=== PATIENT | female | born 1965 | race Caucasian/White ===

== ENCOUNTER 2022-02-10 12:26 | Emergency (ER) | payer MEDICARE, MEDICAID ==
[~2022-02-10] VITALS: Ht 149.9 cm; Wt 81.8 kg
[~2022-02-10 12:26] MED LIST: ALBU8HFA PO; CALC1CAP13 PO; CARI-433 PO; CETI10CA PO; DIAZ10TA; FLUT16SP10 NAS; INTE30PE3 IM; LEVO50TA8 PO; LIDOCAINE OINT 5% TOP; MECL-159 PO; NAPR-1170 PO; NITR0.4T48 SL; OMEP20CA16 PO; ONDA-103 PO; OXYC-145 PO; TUMERIC PO; VIT1TABL91 PO
== END 2022-02-10 13:53 | disposition home or self-care (01) ==
LOC: ER 12:27
DX: M79.671 Pain in right foot (principal); Z88.5 Allergy status to narcotic agent; Z79.899 Other long term (current) drug therapy; Z88.6 Allergy status to analgesic agent; Z90.49 Acquired absence of other specified parts of digestive tract; X50.0XXA Overexertion from strenuous movement or load, initial encounter; Y93.89 Activity, other specified; Y92.89 Other specified places as the place of occurrence of the external cause; Y99.8 Other external cause status
CPT/HCPCS: 73630; 99283; A6449

== ENCOUNTER 2023-08-14 12:56 | Emergency (ER) | payer MEDICARE, MEDICAID ==
[~2023-08-14] VITALS: Ht 149.9 cm; Wt 90.2 kg
[~2023-08-14 12:56] MED LIST changes: +ALBU18HF2 PO; -CALC1CAP13 PO; -CARI-433 PO; -DIAZ10TA; +DIAZ10TA4 PO; -INTE30PE3 IM; -LIDOCAINE OINT 5% TOP; -MECL-159 PO; +MECL-302 PO; +MELO-100 PO; -NAPR-1170 PO; -NITR0.4T48 SL; -OXYC-145 PO; +PER5325T PO; +SUMA25TA35 PO; +TIZA-205; -TUMERIC PO
[2023-08-14 13:18] VITALS: TEMP 97
[2023-08-14 15:26] VITALS: BP 165/85; PULSE 58; RESP 16; O2SAT 97
== END 2023-08-14 15:24 | disposition home or self-care (01) ==
LOC: ER 12:56
DX: G89.18 Other acute postprocedural pain (principal); M79.671 Pain in right foot; Z88.8 Allergy status to other drugs, medicaments and biological substances; Z88.5 Allergy status to narcotic agent; Z79.899 Other long term (current) drug therapy; Z90.710 Acquired absence of both cervix and uterus; Z90.49 Acquired absence of other specified parts of digestive tract
CPT/HCPCS: 99281; A6258; A6446; A6449

== ENCOUNTER 2024-05-18 11:01 | Outpatient (CLI) | payer MEDICARE, MEDICAID | END 2024-05-18 23:59 | disposition home or self-care (01) | LOC: MRI02 11:01 | PROVIDERS: ATTEND Podiatrist Foot & Ankle Surgery | DX: S93.629A Sprain of tarsometatarsal ligament of unspecified foot, initial encounter (principal); S92.819A Other fracture of unspecified foot, initial encounter for closed fracture; M79.671 Pain in right foot; G57.80 Other specified mononeuropathies of unspecified lower limb; M19.071 Primary osteoarthritis, right ankle and foot; X58.XXXA Exposure to other specified factors, initial encounter; Y93.89 Activity, other specified; Y92.89 Other specified places as the place of occurrence of the external cause; Y99.8 Other external cause status | CPT/HCPCS: 73718; 73721 ==

== ENCOUNTER 2024-09-20 07:24 | Outpatient (CLI) | payer MEDICARE, MEDICAID | END 2024-09-20 23:59 | disposition home or self-care (01) | LOC: MRI02 07:24 | PROVIDERS: ATTEND Podiatrist Foot & Ankle Surgery | DX: S93.621A Sprain of tarsometatarsal ligament of right foot, initial encounter (principal); M65.871 Other synovitis and tenosynovitis, right ankle and foot; X58.XXXA Exposure to other specified factors, initial encounter; Y93.89 Activity, other specified; Y92.89 Other specified places as the place of occurrence of the external cause; Y99.8 Other external cause status | CPT/HCPCS: 73721 ==

== ENCOUNTER 2024-11-22 08:13 | Day surgery (SDC) | payer MEDICARE, MEDICAID ==
[2024-11-15 12:17] LABS: BILIRUBIN,URINE NEGATIVE (Neg); CLARITY,URINE CLEAR (Clear); COLOR,URINE YELLOW (Yellow); GLUCOSE, URINE NEGATIVE (Neg); KETONES,URINE NEGATIVE (Neg); LEUKOCYTE ESTERASE ,URINE NEGATIVE (Neg); NITRITES, URINE NEGATIVE (Neg); OCCULT BLOOD,URINE NEGATIVE (Neg); PROTEIN,URINE NEGATIVE (Neg); UROBILINOGEN,URINE 0.2 E.U/dL (0.2-1.0)
[2024-11-15 12:19] LABS: UA COLLECTION TYPE CLN CATCH MIDSTREAM
[2024-11-15 12:24] LABS: BASOPHILS % (AUTO) 0.4 % (0-1); EOSINOPHILS # (AUTO) 0.5 X10'3 (0-0.9); EOSINOPHILS % (AUTO) 4.3 % (0-6); LYMPHOCYTES # (AUTO) 2.9 X10'3 (1.1-4.8); LYMPHOCYTES % (AUTO) 26.6 % (21-51); MEAN CORPUSCULAR HEMOGLOBIN 29.1 PG (27.0-31.0); MEAN CORPUSCULAR HGB CONC 33.7 g/dL (33.0-36.5); MEAN CORPUSCULAR VOLUME 86.4 FL (78-98); MEAN PLATELET VOLUME 7.8 FL (7.4-10.4); MONOCYTES # (AUTO) 0.6 X10'3 (0-0.9); MONOCYTES % (AUTO) 5.3 % (2-12); NEUTROPHILS # (AUTO) 6.8 X10'3 (1.8-7.7); NEUTROPHILS % (AUTO) 63.4 % (42-75); PRE OP HEMATOCRIT 41.8 % (35.0-45.0); PRE OP HEMOGLOBIN 14.1 g/dL (12.0-16.0); PRE OP PLATELET COUNT 316 X10'3 (140-440); PRE OP WHITE BLOOD COUNT 10.7 10'3 (4.8-10.8); RED BLOOD COUNT 4.84 X10'6 (4.20-5.60); RED CELL DISTRIBUTION WIDTH 13.8 % (11.5-14.5)
[2024-11-15 12:41] LABS: ALBUMIN/GLOBULIN RATIO 1.1 (1.1-1.5); ALKALINE PHOSPHATASE 126 IU/L (46-116); BLOOD UREA NITROGEN 10 MG/DL (7-18); BUN/CREATININE RATIO 13.2 (10.0-20.0); CALCIUM 9.2 MG/DL (8.5-10.1); CHLORIDE 109 MMOL/L (99-107); CREATININE 0.76 MG/DL (0.40-0.90); PRE OP ALT 37 U/L (30-65); PRE OP ANION GAP 7 (8-16); PRE OP AST 19 U/L (10-37); PRE OP BILIRUB, TOTAL 0.4 MG/DL (0.0-1.0); PRE OP GLUCOSE 99 MG/DL (70-104); PRE OP POTASSIUM 3.9 MMOL/L (3.4-5.1); PRE OP SODIUM 143 MMOL/L (135-145); TOTAL CARBON DIOXIDE 27.2 MMOL/L (24-32); TOTAL PROTEIN 7.6 G/DL (6.4-8.2); eGFR 78 ML/MIN
[~2024-11-22] VITALS: Ht 151.1 cm; Wt 86.2 kg
[2024-11-22] VITALS (11 sets, daily range): BP systolic 104–139; BP diastolic 59–79; PULSE 51–74; RESP 11–16; TEMP 97.8; O2SAT 94–100
[2024-11-22] MEDS: ceFAZolin 2gm in dextrose, iso 50 ML IV ONE (05:30)
[~2024-11-22 08:13] MED LIST changes: -ALBU18HF2 PO; +ATOR10TA70 PO; +MAGNESIUM; -MECL-302 PO; +MULT-1085 PO; -ONDA-103 PO; +SEMA1PEN3 SQ; -TIZA-205; +TIZA-205 PO; +VIT B12; +VIT D3; -VIT1TABL91 PO; +ZINC; +[UNRECOGNIZED DRUG - OTHER]
[2024-11-22] MEDS: famotidine 20mg tablet PO ONE (09:12)
[2024-11-22] MEDS: ringers solution, lacted 1,000 ML IV SCH (09:13)
[2024-11-22] MEDS ORDERED: bacitracin 15gm ointment TP ONE (09:29)
[2024-11-22] MEDS ORDERED: BUPIVAcaine 2.5mg/ml inj 50ml vial (contains preservative) ONE (09:29)
[2024-11-22] MEDS ORDERED: cloNIDine hcl/PF 100mcg/ml inj ONE (11:27)
[2024-11-22] MEDS ORDERED: propofol inj 20 ML IV ONE (11:29)
[2024-11-22] MEDS ORDERED: midazolam 1 mg/ML 2ml injection ONE (11:29)
[2024-11-22] MEDS ORDERED: fentaNYL/PF 50MCG/1 ML 2ML syringe ONE (11:29)
[2024-11-22] MEDS ORDERED: sevoflurane 250ml liquid IH ONE (11:31)
[2024-11-22] MEDS ORDERED: ROPIVAcaine 0.5% (5mg/ml) 30ml vial ONE ×2 (12:24)
[2024-11-22] MEDS ORDERED: dexamethasone sod phosphate 4mg/ml inj. ONE (12:24)
[2024-11-22] MEDS ORDERED: ondansetron/PF 4mg/2ml inj IV PRN (12:55)
[2024-11-22] MEDS ORDERED: fentaNYL/PF 50MCG/1 ML 2ML syringe IV PRN (12:55)
[2024-11-22] MEDS ORDERED: ringers solution, lacted 1,000 ML IV SCH (12:55)
[2024-11-22] MEDS: ketorolac trometh 30MG/ML vial 30 MG/ML VIAL IV ONE (13:02)
[2024-11-22] MEDS: acetaminophen 1,000mg/100ml IV 100 ML IV PRN (13:02)
[2024-11-22] MEDS: fentaNYL/PF 50MCG/1 ML 2ML syringe IV PRN (13:19)
--- NOTE | 2024-11-29 20:38 | RADIOLOGY REPORT ---
CLINICAL INFORMATION: 59 years old, Female TECHNIQUE: 3 views of the left foot foot were obtained. COMPARISON: None FINDINGS: Intraoperative radiographs demonstrate ORIF of the left 1st and 2nd metatarsal tarsal with orthopedic screws in place.. Fluoroscopy time 3.7 seconds IMPRESSION: 1. Details of the finding in the operative notes
== END 2024-11-22 14:27 | disposition home or self-care (01) ==
LOC: PAS 08:13
PROVIDERS: ATTEND Podiatrist Foot & Ankle Surgery
DX: M25.871 Other specified joint disorders, right ankle and foot (principal); M24.071 Loose body in right ankle; G89.18 Other acute postprocedural pain; E11.9 Type 2 diabetes mellitus without complications; E78.5 Hyperlipidemia, unspecified; M19.011 Primary osteoarthritis, right shoulder; M19.012 Primary osteoarthritis, left shoulder; G35 Multiple sclerosis; G40.909 Epilepsy, unspecified, not intractable, without status epilepticus; K21.9 Gastro-esophageal reflux disease without esophagitis; Z88.6 Allergy status to analgesic agent; Z88.8 Allergy status to other drugs, medicaments and biological substances; Z79.899 Other long term (current) drug therapy; Z98.890 Other specified postprocedural states; M17.11 Unilateral primary osteoarthritis, right knee
CPT/HCPCS: 27620; 28315; 36415; 64445; 64447; 73620; 80053; 81003; 82948; 85025; A4215; A4618; A6223; A6402; A6449; A7000; J0131; J0690; J0735; J1100; J1885; J2250; J2405; J2704; J2795; J3010; J7030; J7120; Z7506; Z7512; Z7610; 76000; A4615; J3490

== ENCOUNTER 2024-11-29 14:07 | Emergency (ER) | payer MEDICARE, MEDICAID ==
[~2024-11-29] VITALS: Ht 149.9 cm; Wt 84.9 kg
[2024-11-29 14:22] VITALS: BP 187/70; PULSE 79; O2SAT 97
--- NOTE | 2024-11-29 18:28 | Physician Documentation ---
History of Present Illness ~ Chief Complaint: Leg Pain Stated Complaint: POST OP COMPLICATIONS Time Seen by MD: 18:27 Primary Medical Doctor: Fabiola JARA HPI Patient presents to the emergency room for evaluation of right calf pain after having a foot and ankle surgery on November 23. She spoke with the clinic of her surgeon who instructed her to come into the emergency room to rule out DVT. No fevers. Pain controlled. Moving foot and ankle independently without limitations. Tetanus witin 5 years: No Medication Reconciliation Allergies: Coded Allergies: chlorzoxazone (Verified Allergy, Severe, SWELLING, 08/11/23) duloxetine (Verified Allergy, Severe, RASH/PEELING, 08/11/23) metaxalone (Verified Allergy, Severe, RASH, 08/11/23) venlafaxine (Verified Allergy, Severe, RASH AND PEELING, 08/11/23) hydromorphone (Verified Allergy, Intermediate, hallucination, nausea, vomiting, 06/27/16) lamotrigine (Verified Allergy, Unknown, SKIN CRAWLING HIVES TINGLING NUMB, 11/21/24) morphine (Verified Allergy, Unknown, VOMIT, 11/21/24) prednisone (Verified Allergy, Unknown, SWELLING, RASH, TIGHTENING, 08/11/23) Scheduled Atorvastatin Calcium (Atorvastatin Calcium), 1 TAB PO DAILY, (Reported) Cetirizine Hcl (Zyrtec), 10 MG PO DAILY, (Reported) Fluticasone Propionate (Flonase), 1 SPR ERWIN BID, (Reported) Levothyroxine Sodium (Levothyroxine Sodium), 1 TAB PO DAILY, (Reported) Meloxicam* (Meloxicam*), 1 TAB PO DAILY, (Reported) Multivitamin (Multi Vitamin Daily), Unknown Dose PO DAILY, (Reported) Omeprazole (Omeprazole), 1 CAP PO DAILY, (Reported) Semaglutide (Ozempic), 1 MG SQ Q7D, (Reported) Scheduled PRN Oxycodone Hcl/Acetaminophen 5/325 MG* (Percocet 5/325 MG*), 1 TAB PO Q6H PRN for moderate pain, (Reported) Sumatriptan Succinate (Imitrex), 2 TAB PO DAILY PRN for migraine headaches, (Reported) Tizanidine Hcl (Zanaflex), 0.5 TAB PO DAILY PRN for muscle spasms, (Reported) albuterol inhaler (Pro-Air Inhaler), 1-2 PUFFS PO Q4H PRN for SOB or wheezing, (Reported) Miscellaneous Medications Diazepam (Diazepam), 1 TAB PO, (Reported) [Magnesium], (Reported) [Probitotic 10], Unknown Dose, (Reported) [Vit B12], (Reported) [Vit D3], (Reported) [Zinc], (Reported) Past Medical History Past Medical History: Multiple Sclerosis, Rheumatoid Arthritis Past Surgical History: cholecystectomy, hysterectomy, orthopedic surgeries Other Past Family History: Adopted Alcohol Use: Occasionally Drug Use: none Lives In: Home Occupation: employed Review of Systems ROS All review of systems negative except as per HPI Physical Exam Vital Signs: Temperature: 98.0, Heart Rate: 79, Respiratory Rate: 16, BP: 187/70, Pulse Oximetry: 97, Weight: 84.860 Oxygen Flow Rate: 0 General Appearance General: Patient is awake, alert, oriented x4 in no acute distress and well appearing.~ Head: Normocephalic and atraumatic. Eyes: Conjunctival normal. EOMI. PERRL. ENT: Mucous membranes moist. Neck: Supple, trachea is midline. Chest: Clear to auscultation bilaterally without rales, rhonchi, or wheezes. There is no accessory muscle use or retractions. Cardiac: RRR without murmurs, gallops, or rubs. Extremities: Normal strength. Normal range of motion. Noted tenderness to right calf without erythema. Surgical wounds appear well healing without infection Progress Results/Orders Results/Orders Vital Signs 11/29/24 11/29/24 14:22 18:46 Temp 98.0 Pulse 79 Resp 16 14 B/P (MAP) 187/70 Pulse Ox 97 O2 Flow Rate 0 Medical Decision Making Findings Patient presents to the emergency room for evaluation of leg pain. Differentials include but are not limited to DVT, soft tissue injury, hematoma, post surgical pain therefore ultrasound ordered which was reassuring. No signs of infection. He had not feel emergent labs are necessary. Knee Diff Dx:Considerations: Include: DJD Departure Disposition: HOME / SELF CARE / HOMELESS Impression: Primary Impression: Leg pain Condition: Stable Discharge Instructions: Muscle Strain, [id number] Referrals: NO PRIMARY CARE PROVIDER (PCP) Education Educated: Patient Educated regarding: diagnosis, need for follow up Signature Scribe Signature: No scribe Attestation: The note accurately reflects work and decisions made by me.Macario Harding MD 11/29/24 20:16 MACARIO HARDING MD November 29, 2024 18:28
[2024-11-29 18:46] VITALS: RESP 14
--- NOTE | 2024-11-29 20:36 | VASCULAR REPORT ---
RIGHT LOWER EXTREMITY VENOUS DOPPLER ULTRASOUND CLINICAL HISTORY: Calf pain. Recent foot and ankle surgery. TECHNIQUE: Grayscale ultrasound with compression, color Doppler flow imaging with pulsed duplex sonog christopher of the right lower extremity deep venous system from the common femoral veins through the popli teal veins is performed. COMPARISON: None FINDINGS: Right common femoral vein: Negative. Right greater saphenous vein: Negative. Right deep femoral vein: Negative. Right femoral vein: Negative. Right popliteal vein: Negative. Other: Visualized right posterior tibial and peroneal veins demonstrate color flow. Contralateral lef t common femoral vein appears patent. IMPRESSION: No sonographic evidence of deep venous thrombosis in the right lower extremity at this time.
[2024-11-29 20:37] VITALS: TEMP 98
== END 2024-11-29 20:40 | disposition home or self-care (01) ==
LOC: ER 14:08
DX: M79.661 Pain in right lower leg (principal); G35 Multiple sclerosis; M06.9 Rheumatoid arthritis, unspecified; Z88.5 Allergy status to narcotic agent; Z88.8 Allergy status to other drugs, medicaments and biological substances; Z90.49 Acquired absence of other specified parts of digestive tract; Z90.710 Acquired absence of both cervix and uterus
CPT/HCPCS: 93971; 99284; A6449; A6222

== ENCOUNTER 2024-12-27 09:16 | Outpatient (CLI) | payer MEDICARE, MEDICAID ==
--- NOTE | 2024-12-27 11:00 | RADIOLOGY REPORT ---
CLINICAL HISTORY: Pain in the right ankle and right lower leg. History of prior right foot and ankle surgeries. Evaluate Achilles tendon. TECHNIQUE: Multisequence multiplanar MRI images of the right ankle were obtained without contrast. COMPARISON: MR MRI LOWER EXTREMITY RIGHT on DOS: 09/20/24, MR MRI LOWER EXTREMITY RIGHT on DOS: 05/18/24 , MR MRI LOWER EXTREMITY RIGHT on DOS: 05/18/24 FINDINGS: BONES/JOINTS: No acute fracture or focal marrow contusion. No osteochondral lesion. No significant j oint effusion. Similar-appearing postsurgical changes of the medial malleolus from prior lateral liga ment reconstruction. Similar-appearing postsurgical changes of the 1st and 2nd MTP joints with associ ated artifact which limits evaluation of adjacent structures. TENDONS: Tibialis posterior, flexor digitorum longus, and flexor hallucis longus tendons are intact. [id number] peroneal tenosynovitis near the level of the lateral malleolus, decreased compared t o the prior MRI. Previously seen loose bodies within the peroneal tendon sheath are no longer visual ized. Tibialis anterior, extensor hallucis longus, and extensor digitorum longus tendons are intact. Mild Achilles tendinosis with mild peritendinitis. LIGAMENTS: Mild edema of the deep fibers of the deltoid ligament complex, unchanged and likely sequel a of chronic sprain. Spring ligament complex is intact. Similar-appearing postsurgical changes from p rior lateral ligament reconstruction. Attenuated, indistinct fibers of the anterior talofibular ligam ent, likely sequela of postsurgical changes and prior chronic sprain/partial tear unchanged. Posterio r talofibular ligament is intact. Syndesmotic ligaments are intact. Thickened calcaneofibular ligamen t, similar to prior exams, likely chronic sprain. PLANTAR FASCIA: Unremarkable. No significant thickening or edema. SINUS TARSI: Unremarkable. No significant edema. MUSCLES: Unremarkable. No significant atrophy. OTHER: No other significant findings. IMPRESSION: 1. Mild Achilles tendinosis with mild peritendinitis. No Achilles tendon tear. 2. Sequelae of postsurgical changes as detailed above. 3. Peroneal tenosynovitis, decreased compared to the prior exam, with interval removal of previously seen loose bodies in the peroneal tendon sheath. 4. Additional findings as described above.
== END 2024-12-27 23:59 | disposition home or self-care (01) ==
LOC: MRI02 09:16
PROVIDERS: ATTEND Podiatrist Foot & Ankle Surgery
DX: S93.621A Sprain of tarsometatarsal ligament of right foot, initial encounter (principal); S92.811A Other fracture of right foot, initial encounter for closed fracture; M79.671 Pain in right foot; M65.871 Other synovitis and tenosynovitis, right ankle and foot; M76.61 Achilles tendinitis, right leg; M25.471 Effusion, right ankle; R60.0 Localized edema; X58.XXXA Exposure to other specified factors, initial encounter; Y93.9 Activity, unspecified; Y92.89 Other specified places as the place of occurrence of the external cause; Y99.8 Other external cause status
CPT/HCPCS: 73721

== ENCOUNTER 2025-03-15 13:01 | Emergency (ER) | payer MEDICARE, MEDICAID ==
[~2025-03-15] VITALS: Ht 149.9 cm; Wt 83.0 kg
[2025-03-15 13:05] VITALS: BP 177/84; PULSE 70; RESP 16; O2SAT 97
[2025-03-15] MEDS: DEXAMETHASONE 6 MG TABLET PO ONE (13:44)
--- NOTE | 2025-03-15 15:16 | Physician Documentation ---
History of Present Illness ~ Chief Complaint: Neck pain Stated Complaint: NECK AND HEAD PAIN Time Seen by MD: 13:16 OK to notify your PCP?: Yes Primary Medical Doctor: Fabiola JARA Source: patient Mode of Arrival: POV Exam Limitations: no limitations HPI 59-YEAR-OLD FEMALE WITH CHIEF COMPLAINT NECK PAIN THAT RADIATES INTO THE BACK OF THE RIGHT SIDE OF HER HEAD THAT STARTED YESTERDAY BUT WORSENED WHEN SHE WOKE UP THIS MORNING. SHE STATES THE PAIN IS WORSE WHEN SHE TRIES TO LOOK TO THE LEFT OR RIGHT. SHE HAS BEEN EVALUATED RIGHT NOW BY A NEUROLOGIST OUT OF THE AREA FOR OCCIPITAL NEURALGIA. SHE DOES HAVE TIZANIDINE WHICH SHE TOOK LAST NIGHT BUT NO OTHER PRE ARRIVAL TREATMENT. NO RECENT FALLS OR TRAUMA TO HEAD OR NECK. PATIENT ALSO REPORTS A DIAGNOSIS OF MS AND STATES SHE HAS BEEN IN REMISSION FOR TWO YEARS AND NOT ON ANY MEDICATIONS. Medication Reconciliation Allergies: Coded Allergies: chlorzoxazone (Verified Allergy, Severe, SWELLING, 08/11/23) duloxetine (Verified Allergy, Severe, RASH/PEELING, 08/11/23) metaxalone (Verified Allergy, Severe, RASH, 08/11/23) venlafaxine (Verified Allergy, Severe, RASH AND PEELING, 08/11/23) hydromorphone (Verified Allergy, Intermediate, hallucination, nausea, vomiting, 06/27/16) lamotrigine (Verified Allergy, Unknown, SKIN CRAWLING HIVES TINGLING NUMB, 11/21/24) morphine (Verified Allergy, Unknown, VOMIT, 11/21/24) prednisone (Verified Allergy, Unknown, SWELLING, RASH, TIGHTENING, 08/11/23) Scheduled Atorvastatin Calcium (Atorvastatin Calcium), 1 TAB PO DAILY, (Reported) Cetirizine Hcl (Zyrtec), 10 MG PO DAILY, (Reported) Fluticasone Propionate (Flonase), 1 SPR ERWIN BID, (Reported) Levothyroxine Sodium (Levothyroxine Sodium), 1 TAB PO DAILY, (Reported) Meloxicam* (Meloxicam*), 1 TAB PO DAILY, (Reported) Multivitamin (Multi Vitamin Daily), Unknown Dose PO DAILY, (Reported) Omeprazole (Omeprazole), 1 CAP PO DAILY, (Reported) Semaglutide (Ozempic), 1 MG SQ Q7D, (Reported) Scheduled PRN Oxycodone Hcl/Acetaminophen 5/325 MG* (Percocet 5/325 MG*), 1 TAB PO Q6H PRN for moderate pain, (Reported) Sumatriptan Succinate (Imitrex), 2 TAB PO DAILY PRN for migraine headaches, (Reported) Tizanidine Hcl (Zanaflex), 0.5 TAB PO DAILY PRN for muscle spasms, (Reported) albuterol inhaler (Pro-Air Inhaler), 1-2 PUFFS PO Q4H PRN for SOB or wheezing, (Reported) Miscellaneous Medications Diazepam (Diazepam), 1 TAB PO, (Reported) [Magnesium], (Reported) [Probitotic 10], Unknown Dose, (Reported) [Vit B12], (Reported) [Vit D3], (Reported) [Zinc], (Reported) Past Medical History Past Medical History: Multiple Sclerosis, Rheumatoid Arthritis Past Surgical History: cholecystectomy, hysterectomy, orthopedic surgeries Other Past Family History: Adopted Alcohol Use: Occasionally Drug Use: none Lives In: Home Occupation: employed Review of Systems All Other Systems at this time: Reviewed and Negative Physical Exam Vital Signs: Temperature: 98.6, Source: Temporal, Heart Rate: 70, Respiratory Rate: 16, BP: 177/84, Pulse Oximetry: 97, Weight: 83.000 Oxygen Flow Rate: 0 Physical Exam GENERAL APPEARANCE: ALERT, WD/WN. NAD. HEENT: NCAT, TENDERNESS OVER OCCIPITAL SCALP. PERRL, EOMI. NECK: SUPPLE, TRACHEA MIDLINE. CARDIOVASCULAR: RRR. NO M/R/G. LUNGS: CTAB. BREATHING UNLABORED SPINE: NO TENDERNESS OVER SPINOUS PROCESSES OF CERVICAL SPINE THERE IS TENDERNESS OVER THE SCM MUSCLE IN THE RIGHT SIDE, TRAPEZIUS AND RHOMBOID MUSCLE. ACTIVE RANGE MOTION OF CERVICAL SPINE IS REDUCED WHEN PATIENT TRIES TO LOOK TO THE RIGHT. EXTREMITIES: NORMAL INSPECTION. NO EDEMA. SKIN: WARM/DRY, NORMAL COLOR NEUROLOGICAL: ALERT AND ORIENTED X4, NORMAL GAIT. PSYCHIATRIC: AFFECT CONGRUENT WITH MOOD. Progress Progress Note WITH PATIENT REPORTED THAT SHE DID FEEL THAT THE DEXAMETHASONE 10 MG AND HELPED HER PAIN PATIENT WAS OBSERVED FOR 2HOURS AFTER GIVING THE DEXAMETHASONE AND NO REACTIONS Results/Orders Reviewed/noted all lab results: Yes Results/Orders Orders - JOANA HUANG General Nursing Order (03/15/25 13:25) Completed Orders - JOANA HUANG Dexamethasone Tablet (Decadron Tablet) (03/15/25 13:35) Dexamethasone 6mg Tablet (Dexamethasone (03/15/25 13:40) Medications Received in ER Medications (Trade) Dose Ordered Sig/Zainab Route PRN Reason Start Time Stop Time Status Last Admin Dose Admin (Decadron tablet) 4 mg ONCE ONCE PO 03/15/25 13:35 03/15/25 13:36 DC 03/15/25 13:44 4 MG (Dexamethasone 6mg tablet) 6 mg ONCE ONCE PO 03/15/25 13:40 03/15/25 13:41 DC 03/15/25 13:44 6 MG Vital Signs 03/15/25 13:05 Temp 98.6 Pulse 70 Resp 16 B/P (MAP) 177/84 Pulse Ox 97 O2 Flow Rate 0 Medical Decision Making Differential Dx:Considerations: Include: Cervical muscle spasm, Discitis, DJD, Meningitis, Thyroiditis, Torticollis, Vertebral artery dissect., Other Departure Time of Disposition: 15:16 Disposition: 01 HOME / SELF CARE / HOMELESS Impression: Primary Impression: Neck pain Additional Impression: Headache Qualified Codes: R51.9 - Headache, unspecified Condition: Stable Discharge Instructions: Acute Torticollis, Adult Additional Instructions: I DO SUSPECT THAT THE PAIN THAT YOU WERE DOING WITH RIGHT NOW IS RELATED TO MUSCLE SPASM AND THE MUSCLE SPASM TRIGGERING A HEADACHE WHICH IS CONSISTENT WITH OCCIPITAL NEURALGIA WHICH YOU REPORTED YOU WERE BEING EVALUATED FOR. IF HOWEVER YOU DEVELOP A FEVER,VOMITING, INCREASING PAIN OR ANY OTHER ATYPICAL SYMPTOMS RETURN TO ER YOU CAN TAKE YOUR TIZANIDINE WHEN YOU GET HOME WE TREATED YOU WITH DEXAMETHASONE 10 MG AND MONITORED YOU FOR AN HOUR AFTERWARDS DUE TO YOU REPORTING AN ALLERGY TO PREDNISONE 15YEARS AGO. WE MUTUALLY AGREED THAT BASED ON YOUR REACTION BEFORE WITH [facility], SWELLING AFTER TAKING FOR SEVERAL DAYS IN A ROW THAT A SINGLE DOSAGE OF DEXAMETHASONE WOULD UNLIKELY CAUSE THOSE SYMPTOMS. Referrals: NO PRIMARY CARE PROVIDER (PCP) Education Educated: Patient Educated regarding: diagnosis, treatment, need for follow up Signature Scribe Signature: X Attestation: JOANA SAMANIEGO Mar 15, 2025 15:16
[2025-03-15 15:32] VITALS: TEMP 98.6
== END 2025-03-15 15:34 | disposition home or self-care (01) ==
LOC: ER 13:01
DX: M54.2 Cervicalgia (principal); R51.9 Headache, unspecified; G35 Multiple sclerosis; M06.9 Rheumatoid arthritis, unspecified; Z88.5 Allergy status to narcotic agent; Z88.8 Allergy status to other drugs, medicaments and biological substances; Z90.49 Acquired absence of other specified parts of digestive tract; Z90.710 Acquired absence of both cervix and uterus
CPT/HCPCS: 99283; L0172; J8540

== ENCOUNTER 2025-04-11 09:07 | Outpatient (CLI) | payer MEDICARE, MEDICAID ==
--- NOTE | 2025-04-11 12:20 | RADIOLOGY REPORT ---
CLINICAL HISTORY: PAIN IN R FOOT, LISFRANC'S SPRAIN TECHNIQUE: Multisequence multiplanar MRI images of the right ankle were obtained without contrast. COMPARISON: MR MRI LOWER EXTREMITY RIGHT on DOS: 12/27/24, DI FOOT,LIMITED (AP/LAT) on DOS: 11/22/24, MR MRI LOWER EXTREMITY RIGHT on DOS: 09/20/24 FINDINGS: BONES/JOINTS: No acute fracture or focal marrow contusion. No osteochondral defect or significant chondromalacia. Similar-appearing postsurgical changes at the lateral malleolus from prior lateral ligament reconstruction. There is also artifact from prior postsurgical changes at the 1st and 2nd tarsometatarsal joints, grossly similar to the prior exam. No significant joint effusion. TENDONS: Tibialis posterior, flexor digitorum longus, and flexor hallucis longus tendons are intact. There is mild peroneal tenosynovitis, minimally changed compared to the prior exam. There is scarring adjacent to the course of the peroneus longus and brevis tendons from the level of the lateral malleolus and coursing caudally to the peroneal tubercle and adjacent subcutaneous tissues, appears to involve a portion of the expected course of the sural nerve. Focal thickening of the sural nerve up to 6 mm in diameter visualized as it courses posterior to the peroneus longus and brevis tendons near the level of the lateral malleolus (series 2 image 9 correlating with series 6, image 5), with thin, indistinct sural nerve fibers more distally, may be due to neuropathy. This finding appears unchanged compared to prior MRI. Tibialis anterior, extensor hallucis longus, and extensor digitorum longus tendons are intact. Mild Achilles tendinosis with mild peritendinitis. LIGAMENTS: Mild edema in the deep fibers of the deltoid ligament complex, unchanged and likely due to chronic sprain. Spring ligament complex is intact. Postsurgical changes of prior lateral ligament reconstruction. The anterior talofibular ligament is attenuated, similar to the prior exam, likely sequelae of postsurgical changes with superimposed scarring. Posterior talofibular ligament is intact. Syndesmotic ligaments appear intact. Thickened calcaneofibular ligament, unchanged. PLANTAR FASCIA: Unremarkable. No significant thickening or edema. SINUS TARSI: Unremarkable. No significant edema. MUSCLES: Unremarkable. No significant atrophy. OTHER: No other significant findings. IMPRESSION: 1. Postsurgical changes as detailed above, with similar appearance compared to the prior exam. 2. There is prominent scarring adjacent to the peroneus longus and brevis tendons at the level of the lateral malleolus and along their inframalleolar course and extending to adjacent subcutaneous tissues at the lateral aspect of the hindfoot, including along portions of the expected course of the sural nerve. Focal thickening of the sural nerve is seen near the level of the lateral malleolus, may be sequelae of neuropathy. 3. Mild peroneal tenosynovitis. 4. Sequelae of medial and lateral ligamentous sprains. 5. Mild Achilles tendinosis with mild peritendinitis. 6. Additional findings as detailed above.
== END 2025-04-11 23:59 | disposition home or self-care (01) ==
LOC: MRI02 09:07
PROVIDERS: ATTEND Podiatrist Foot & Ankle Surgery
DX: S92.811A Other fracture of right foot, initial encounter for closed fracture (principal); S93.621A Sprain of tarsometatarsal ligament of right foot, initial encounter; M77.51 Other enthesopathy of right foot and ankle; R60.0 Localized edema; M65.871 Other synovitis and tenosynovitis, right ankle and foot; M79.671 Pain in right foot; Z98.890 Other specified postprocedural states; X58.XXXA Exposure to other specified factors, initial encounter; Y93.89 Activity, other specified; Y92.89 Other specified places as the place of occurrence of the external cause; Y99.8 Other external cause status
CPT/HCPCS: 73721